=== PATIENT | male | born 1955 | race Caucasian/White ===

== ENCOUNTER → 2016-06-10 | Outpatient (CLI) | payer OTHER ==
[~2016-06-10] MED LIST: ALBUAER2 INH; ASPCH81X PO; BUPRTAB51 PO; CHOL100010 PO; CHOL200010 PO; CLON2TAB3 PO; DUTA0.5C PO; EPP3/2 IM; FINA5TAB PO; LEVO-371 PO; LPT/40 PO; LSN5 PO; METH10TA4 PO; MONT1TAB3 PO; NXM/40 PO; OMEG10007 PO; TRAZ1TAB8 PO; TRIA1SPR4 NAE; VNTHFA/IN INH
[2016-06-10 14:04] LABS: BASO % 0.3 %; BASO ABS # 0.02 K/uL (0-0.2); COMPLETE YES; EOS % 3.2 %; HEMATOCRIT 43.1 % (42-52); IG% 0.3 %; LYMPH ABS # 1.76 K/uL (1.2-3.4); MEAN CELL VOLUME 89.4 fL (80-100); MEAN CORPUSCULAR HEMOGLOBIN 30.7 pg (25-34); MEAN CORPUSCULAR HGB CONC 34.3 g/dl (32-36); MEAN PLATELET VOLUME 10.4 fL (7.4-10.4); NEUT % 60.2 %; PLATELET COUNT 214 K/uL (130-400); RED BLOOD COUNT 4.82 M/uL (4.7-6.1); WHITE BLOOD COUNT 5.86 K/uL (4.8-10.8)
[2016-06-10 14:11] LABS: ESTIMATED AVERAGE GLUCOSE 154 mg/dl; HA1C FLAG Normal (Normal)
[2016-06-10 17:17] LABS: ALT/SGPT 52 U/L (12-78); BLOOD UREA NITROGEN 12 mg/dl (7-18); BUN/CREATININE RATIO 10.3 (10-20); CALCIUM 8.8 mg/dl (8.5-10.1); CARBON DIOXIDE 27 mmol/L (21-32); CHLORIDE 106 mmol/L (98-107); GLUCOSE 128 mg/dl (70-99); POTASSIUM 4.5 mmol/L (3.5-5.1); SODIUM 140 mmol/L (136-145)
[2016-06-10 17:26] LABS: ALB/GLOB RATIO 0.9 (0.9-2); ALKALINE PHOSPHATASE 64 U/L (45-117); AST/SGOT 29 U/L (15-37)
== END | disposition home or self-care (01) ==
LOC: C.LABBC 12:32
PROVIDERS: ATTEND Family Medicine
DX: R73.09 Other abnormal glucose (principal); E53.8 Deficiency of other specified B group vitamins; E55.9 Vitamin D deficiency, unspecified; M79.1 Myalgia; R07.9 Chest pain, unspecified

== ENCOUNTER → 2016-07-03 | Outpatient (CLI) | payer OTHER ==
[~2016-07-03] MED LIST changes: -LEVO-371 PO; +LEVO5TAB2 PO; -TRAZ1TAB8 PO; +TRAZ1TAB9 PO
--- NOTE | 2016-07-03 15:46 | DIAGNOSTIC IMAGING REPORT ---
CT SCAN OF THE PARANASAL SINUSES CLINICAL HISTORY: Hypertrophy of the nasal turbinates. COMPARISON STUDY: CT of the brain dated 04/19/2014. TECHNIQUE: High-resolution CT scan of the paranasal sinuses is performed. Images are reviewed in the axial, sagittal, and coronal planes. IV contrast was not administered for this examination. Examination is performed using the fusion protocol. CT DOSE: 922.27 mGy.cm FINDINGS: Postoperative change: Findings are consistent with bilateral maxillary antrectomy with antrostomy formation. Maxillary antra: There is trace dependent mucosal thickening within the maxillary antra. An incomplete bony septation is seen anteriorly on the right. Anterior ethmoid sinuses: Trace mucosal thickening is seen bilaterally. Posterior ethmoid sinuses: Trace mucosal thickening seen bilaterally. Sphenoid sinuses: Clear. Frontal sinuses: Trace mucosal thickening seen on the right. Clear on the left. Ostiomeatal complexes: Maxillary antrostomies are widely patent. Frontoethmoidal and sphenoethmoidal recesses: Patent bilaterally. Carotid arteries: The carotid arteries are protuberant but covered and without septal attachments. Ethmoid roofs: There is asymmetric elevation of the right ethmoid roof as compared to the left. Nasal turbinates: Normal in appearance. Nasal septum: There is rightward deviation of the bony nasal septum. Optic nerves: Covered. Orbits: The bony orbits are intact. Orbital contents are normal in appearance. Calvarium: The imaged calvarium is normal in appearance Mastoid air cells: Well pneumatized. Brain parenchyma: Partially visualized brain parenchyma is within normal limits. IMPRESSION: 1. Trace paranasal sinus disease as above. 2. Findings suggest previous maxillary antrectomy with antrostomy formation. The antrostomies are widely patent. 3. The nasal turbinates are normal as imaged. Electronically signed by: Fredy Prater M.D. 07/03/2016 3:45 PM Dictated Date/Time: 07/03/2016 3:41 PM
== END | disposition home or self-care (01) ==
LOC: C.CTS 14:57
DX: J34.3 Hypertrophy of nasal turbinates (principal)

== ENCOUNTER 2016-07-04 18:54 | Emergency (ER) | payer OTHER ==
[~2016-07-04] VITALS: Ht 185.4 cm; Wt 128.0 kg
[~2016-07-04 18:54] MED LIST changes: -BUPRTAB51 PO; -CHOL200010 PO; -FINA5TAB PO; -LEVO5TAB2 PO; -LSN5 PO; -TRIA1SPR4 NAE; -VNTHFA/IN INH
[2016-07-04 19:01] VITALS: TEMP 36.7; Ht 185.4 cm; Wt 128.0 kg
[2016-07-04] MEDS ORDERED: VNTHFA/IN INH (19:08)
[2016-07-04] MEDS ORDERED: CHOL200010 PO (19:08)
[2016-07-04] MEDS ORDERED: TRIA1SPR4 NAE (19:32)
[2016-07-04] MEDS ORDERED: FINA5TAB PO (19:32)
--- NOTE | 2016-07-04 19:55 | EMERGENCY ROOM VISIT NOTE ---
History First contact with patient: 19:04 Chief Complaint: EYE ASSESSMENT Stated Complaint: CLUSTER IN L EYE SOME PAIN History of Present Illness The patient is a 61 year old male who presents to the Emergency Room with complaints of floaters of the left eye. The patient states that this morning, he developed a "massive floater" in the lateral field of vision of his left eye. He states that the floater looks like one large duckwater with other small floaters around it. His vision is not decreased overall and he is able to see around the floater. He states that this first occurred approximately one hour after taking prednisone, and he is unsure if these are related. The patient is taking prednisone because he has a heart catheterization scheduled on Wednesday and has iodine allergy. The patient denies any history of floaters. He does see an eye doctor and wears glasses. He denies any eye pain, headaches or recent trauma. Review of Systems A complete 10-point Review of Systems was discussed with the patient, with pertinent positives and negatives listed in the History of Present Illness. All remaining Review of Systems questions can be considered negative unless otherwise specified. Past Medical/Surgical History Medical Problems: (1) Blood clots (2) Kidney stone (3) Urinary problem Surgical Problems: (1) Stented coronary artery Family History Diabetes mellitus FH: cancer FH: heart disease Hypertension Kidney disease or stones Social History Smoking Status: Never Smoker Alcohol Use: none Drug Use: none Marital Status: in relationship Housing Status: lives with family Occupation Status: employed Current/Historical Medications Scheduled Aspirin (Aspirin Chewable), 81 MG PO QAM Atorvastatin (Lipitor), 40 MG PO QAM Bupropion Hcl (Wellbutrin Xl), 300 MG PO QAM Cholecalciferol (Vitamin D), 2,000 UNIT PO DAILY Clonazepam (Klonopin), 2 MG PO HS Epinephrine (Epipen 2-Brennan), 0.3 ML IM UD Esomeprazole Magnesium (Nexium), 40 MG PO HS Finasteride (Proscar), 5 MG PO DAILY Fish Oil (Clay-3), 2 CAP PO BID Levocetirizine Dihydrochloride (Xyzal), 5 MG PO HS Montelukast Sodium (Singulair), 10 MG PO QAM Trazodone Hcl (Desyrel), 100 MG PO HS Triamcinolone Acetonide (Nasal (Nasacort Allergy 24Hr), 2 SPRAYS SANTO HS Scheduled PRN Albuterol Hfa (Ventolin Hfa), 2 PUFF INH Q4 PRN for SOB/Wheezing Allergies Coded Allergies: Ascorbate (Unverified Allergy, Unknown, GUNPOWDER-UNKNOWN REACTION, ) PER RECORDS BEE STING (Unverified Allergy, Unknown, UNKNOWN REACTION, 01/20/16) PER RECORDS Cat Dander (Unverified Allergy, Unknown, UNKNOWN REACTION, 01/20/16) PER RECORDS Dobutamine (Verified Allergy, Unknown, TROUBLE BREATING, 01/20/16) Patient had a bad reaction to this drug during a stress test. Eggplant (Unverified Allergy, Unknown, UNKNOWN REACTION, 01/20/16) PER RECORDS Iodinated Contrast Media (Verified Allergy, Unknown, HIVES, 01/20/16) reports being able to tolerate with benadryl pretreats Iron (Unverified Allergy, Unknown, GUNPOWDER-UNKNOWN REACTION, 01/20/16) PER RECORDS Physical Exam Vital Signs Date Time Temp Pulse Resp B/P Pulse Ox O2 Delivery O2 Flow Rate FiO2 07/04/16 20:05 72 18 132/95 95 07/04/16 19:01 36.7 74 20 163/95 95 Room Air Right Eye Acuity: 20/20 Left Eye Acuity: 20/20 Physical Exam VITALS: Vitals are noted on the nurse's note and reviewed by myself. Vital signs stable. GENERAL: This is a 61-year-old male, in no acute distress, nondiaphoretic, well- developed well-nourished. EYES: Visual acuity 20/20 bilaterally. Pupils equal round and reactive to light and accommodation. Conjunctivae without injection, sclerae without icterus. Extraocular movements intact. Slit-lamp exam shows no foreign bodies , hyphema or corneal abrasions. Intraocular pressures measured 11 mmHg in the left eye and 12 mmHg in the right eye. NEURO: Patient was alert and oriented to person place and time. Medical Decision & Procedures Medical Decision Differential diagnosis includes vitreous floaters, vitreous detachment, retinal detachment, CVA, TIA, among others. The patient was evaluated as above. A slit-lamp examination was unremarkable. Intraocular pressures were normal. I discussed the case with Dr. Johnson, the on- call drill press operator, who felt this was likely a vitreous detachment and recommended that the patient have a dilated exam this week or return for any worsening of his symptoms. Findings and treatment plan were discussed with the patient, who verbalized his understanding of my assessment and treatment plan and was discharged home in good condition. Impression Primary Impression: Vitreous floaters of left eye Departure Information Dispostion Home / Self-Care Condition GOOD Referrals Isaiah Gamble D.O.Int.Med. (PCP) Canelo Johnson MD Patient Instructions My [facility] Additional Instructions You should have a dilated eye exam by your own eye doctor or Dr. Johnson sometime this week. If you experience a rainstorm of floaters, his lightning storm flashes, or a loss of peripheral vision, you should call Dr. Johnson's answering service or return to the emergency Department for further evaluation.
[2016-07-04 20:05] VITALS: BP 132/95; PULSE 72; O2SAT 95
[2016-07-04] MEDS ORDERED: BUPRTAB51 PO (21:37)
[2016-07-04] MEDS ORDERED: LEVO5TAB2 PO (21:37)
[2016-07-06] MEDS ORDERED: LSN5 PO (15:50)
== END 2016-07-04 20:05 | disposition home or self-care (01) ==
LOC: C.EDB 18:57 → C.EDD 20:05
DX: H43.392 Other vitreous opacities, left eye (principal); Z86.718 Personal history of other venous thrombosis and embolism; Z87.442 Personal history of urinary calculi; Z95.5 Presence of coronary angioplasty implant and graft; Z83.3 Family history of diabetes mellitus; Z82.49 Family history of ischemic heart disease and other diseases of the circulatory system; Z84.1 Family history of disorders of kidney and ureter; Z79.82 Long term (current) use of aspirin

== ENCOUNTER → 2016-07-06 | Day surgery (SDC) | payer OTHER ==
[~2016-07-06] VITALS: Ht 185.4 cm; Wt 131.7 kg
[~2016-07-06] MED LIST changes: +ADENOSINE IV SOLN 3 MG/ML 20 ML VIAL ONE; -ALBUAER2 INH; +ALUMINUM/MAGNESIUM SUSP 30 ML UDC PO ONE; +ATROPINE SULFATE 0.1 MG/ML 5ML SYR IV PRN; +BUPRTAB51 PO; -CHOL100010 PO; +CHOL200010 PO; +CLOPIDOGREL BISULFATE 75 MG TAB ONE; +CLOPIDOGREL BISULFATE 75 MG TAB PO SCH; -DUTA0.5C PO; +DiphenhydrAMINE HCL 50 MG/ML VIAL ONE; +EPTIFIBATIDE 0.75 MG/ML 75MG VIAL IV ONE; +EPTIFIBATIDE 2 MG/ML 10 ML VIAL IV ONE; +FENTANYL CITRATE INJ 50 MCG/1 ML 2 ML VIAL ONE; +FINA5TAB PO; +HEPARIN SOD (PORCINE) 1000 UNIT/ML 10 ML VIAL ONE; +LEVO5TAB2 PO; +LSN5 PO; -METH10TA4 PO; +MIDAZOLAM HCL 1 MG/ML 2ML VIAL ONE; +NITROGLYCERIN 0.4 MG SL PER TAB CHARGE SL PRN; +NITROGLYCERIN/D5W 100MCG/ML 20ML SYR ONE; +NURSING VERBAL MED ORDER ONE; +NiCARDipine HCL INJ 2.5 MG/ML 10 ML AMP ONE; +ONDANSETRON INJ 2 MG/ML 2 ML VIAL IV PRN; +SODIUM CHLORIDE 0.9% 1000ML 1,000 ML IV SCH; +TRIA1SPR4 NAE; +VNTHFA/IN INH
[2016-07-06 06:54] VITALS: BP 110/94; PULSE 65; TEMP 37; O2SAT 98
[2016-07-06 07:23] VITALS: Ht 185.4 cm; Wt 131.7 kg
--- NOTE | 2016-07-06 07:51 | Procedure Note ---
Pre-Mod Sedation Assessment General Date of Moderate Sedation: Jul 06, 2016. Vital Signs: Vital Signs Past 12 Hours Date Time Temp Pulse Resp B/P Pulse Ox O2 Delivery O2 Flow Rate FiO2 07/06/16 06:54 37.0 65 16 110/94 98 Room Air Review Cardiovascular: regular rate, rhythm, no edema, no gallop, no JVD, no murmur, normal peripheral pulses Abdomen: non tender, soft Lungs: lungs clear, normal breath sounds, no respiratory distress Pre-Sedation Airway Assessment Oral Cavity: WNL Able to Visualize Vocal Cords: No Short Thick Neck: Yes Hx of Sleep Apnea: Yes Smoking Status: Former Smoker Mallampati Classification: Class III Procedure Planning Contraindications-for Mod Sed: None Yes Notes The planned sedation has been discussed with the patient and consent obtained. I have identified the patient, determined the appropriateness of sedation and have assessed the patient immediately prior to the procedure. All medicine(s) and interventions are by my order.
--- NOTE | 2016-07-06 07:53 | History & Physical Bridge Note ---
H&P Re-Evaluation Bridge Note: I have examined the patient, reviewed the History & Physical and in the interval since the performance of the History & Physical I have noted the following changes of clinical significance: No changes noted. Procedure,risks,benefits of cardiac cath/PCI discussed with patient. Consent signed. Further recommendations based on results of the procedure.
--- NOTE | 2016-07-06 10:39 | Procedure Note ---
Post-Mod Sedation Assessment General Date of Moderate Sedation Jul 06, 2016. Vital Signs: Vital Signs Past 12 Hours Date Time Temp Pulse Resp B/P Pulse Ox O2 Delivery O2 Flow Rate FiO2 07/06/16 10:31 76 16 118/78 96 Room Air 07/06/16 10:26 78 16 132/78 96 Room Air 07/06/16 06:54 37.0 65 16 110/94 98 Room Air Review - Discharge Criteria Vital Signs Stable: Yes Alert/Oriented/Conversant: Yes Returned to Baseline Mental St: Yes Nausea Absent/Minimal: Yes Pain/Discomfort/Absent/Minimal: Yes Normal/Baseline Respirations: Yes Active Bleeding?: No Pt Received D/C Instructions: Yes Prescriptions Given: None Specific Proced. D/C Criteria Distal Pulses Present (Cardiac: Yes Groin site assessed-Card Cath: N/A Voided Prior To Discharge: Yes Discharged Patients Adult Escort/Transportation: Yes
--- NOTE | 2016-07-06 12:23 | Discharge Instructions ---
Discharge Instructions Procedure Procedure Date: Jul 06, 2016. Reason for Visit: Cad Dr Miller To Do. Discharge Discharge Date: Jul 06, 2016. Discharge Diagnosis: In stent restenosis. Successful repeat drug eluting stent. Last Recorded Wt (Kilograms): 131.7 Anesthesia Post Anesthesia Instructions: If you have had General Anesthesia or IV Sedation: * Do not drive today. * Resume driving when surgeon permits. * Do not make important decisions or sign legal documents today. * Call surgeon for: 1. Temperature elevations greater than 101 degrees F. 2. Uncontrollable pain. 3. Excessive bleeding. 4. Persistent nausea and vomiting. 5. Medication intolerance (nausea, vomiting or rash). * For nausea and vomiting use only clear liquids such as: tea, soda, bouillon until nausea subsides, then gradually increase diet as tolerated. * If you have any concerns or questions, call your surgeon's office. If physician is unavailable and it is an emergency, call 911 or go to the nearest emergency room. Instructions Activity Recommendations: lifting limitation (No lifting over 10 pounds for 48 hrs.), driving or machine use limit (No driving until 07/07/16.), shower/bathe limit (No shower or bath till 07/07/16.) Recommended Home Diet: low sodium, low cholesterol, diabetes diet Allergies: Coded Allergies: Ascorbate (Unverified Allergy, Unknown, GUNPOWDER-UNKNOWN REACTION, ) PER RECORDS BEE STING (Unverified Allergy, Unknown, UNKNOWN REACTION, 01/20/16) PER RECORDS Cat Dander (Unverified Allergy, Unknown, UNKNOWN REACTION, 01/20/16) PER RECORDS Dobutamine (Verified Allergy, Unknown, TROUBLE BREATING, 01/20/16) Patient had a bad reaction to this drug during a stress test. Eggplant (Unverified Allergy, Unknown, UNKNOWN REACTION, 01/20/16) PER RECORDS Iodinated Contrast Media (Verified Allergy, Unknown, HIVES, 01/20/16) reports being able to tolerate with benadryl pretreats Iron (Unverified Allergy, Unknown, GUNPOWDER-UNKNOWN REACTION, 01/20/16) PER RECORDS Provider Instructions Take aspirin and Plavix every day. Call 911 for any sustained chest pain or dyspnea. Follow Up Follow-up with: Follow up with Robe Sloan and Dr. Miller as scheduled. Allie [place]ri[place] Recommendations: Call your doctor if: * Temperature above 101 degrees * Pain not relieved by pain medicine ordered * There is increased drainage or redness from any incision * You have any unanswered questions or concerns. Your Doctors Instructions noted above were prepared by provider Bay Miller. Patient Signature Section: Patient Instructions Signature Page Pk Fine Patient (or Guardian) Signature/Date: I have read and understand the instructions given to me by my caregivers. Caregiver/RN/Doctor Signature/Date: The above-named patient and/or guardian has received patient instructions on this date. + Original Patient Signature Page (only) stays with chart. Please make copy for patient.
--- NOTE | 2016-07-06 14:51 | ECHOCARDIOGRAM REPORT ---
*NOTICE TO RECEIVING LIBERTARIAN AGENCY This information is strictly Confidential and protected under [place] law. [place] law prohibits you from making any further disclosure of this information unless further disclosure is expressly permitted by the written consent of the person to whom it pertains or is authorized by law. A general authorization for the release of medical or other information is not sufficient for this purpose. Hospital accepts no responsibility if the information is made available to any other person, INCLUDING THE PATIENT. Interpretation Summary * Name: DUC DE ANDA Study Date: 07/06/2016 01:49 PM BP: 127/48 mmHg * Patient Location: C.CATH HR: 47 * : 1955 (M/d/yyyy) Gender: Male Height: 73 in * Age: 61 yrs Ethnicity: CA Weight: 290 lb * Ordering Physician: Bay Miller * Referring Physician: Bay Miller * Performed By: Ronit Alanis * * Reason For Study: CHEST PAIN, POST PCI * BSA: 2.5 m2 * -- Conclusions -- * Left ventricular systolic function is normal. * No regional wall motion abnormalities noted. * Ejection Fraction = 65-70%. * There is moderate concentric left ventricular hypertrophy. * Grade I diastolic dysfunction, (abnormal relaxation pattern). * No significant valvular pathology. Procedure Details * A complete two-dimensional transthoracic echocardiogram was performed (2D, M-mode, Doppler and color flow Doppler). * A contrast injection of Definity was performed to improve assessment of LV function. * Contrast was injected into an intravenous site in the left arm. * One vial of Definity ultrasound contrast was diluted in normal saline to a total volume of 10 ml. A total of '2' ml of solution was administered during imaging. * Lot # [id number] of Definity utilized for procedure. * Expiration date 07/21. * The attending nurse who injected the contrast agent was NELL BEVERLY RN. Left Ventricle * The left ventricle is normal in size. * There is moderate concentric left ventricular hypertrophy. * Ejection Fraction = 65-70%. * Left ventricular systolic function is normal. * No regional wall motion abnormalities noted. Right Ventricle * The right ventricle is not well visualized. * The right ventricular systolic function is normal as assessed by tricuspid annular plane systolic excursion (TAPSE) (normal >1.5 cm). Atria * The left atrium is mildly dilated. * The right atrium is mildly dilated. * Atrial septum poorly visualized. Mitral Valve * The mitral valve is grossly normal. * There is no mitral valve stenosis. * Significant mitral regurgitation is absent. Tricuspid Valve * The tricuspid valve is not well visualized. * Significant tricuspid regurgitation is absent. Aortic Valve * The aortic valve is tricuspid. The leaflet thickness if normal. There is no aortic stenosis, and no significant insufficiency. * The aortic valve opens well. * Aortic valve sclerosis mild, without significant aortic valvular stenosis. * There is no significant aortic regurgitation. Pulmonic Valve * The pulmonary valve is not well seen, but the Doppler examination is normal without significant regurgitation or stenosis. Great Vessels * The aortic root is normal size. * The pulmonary is not well visualized. Pericardium/Pleural * There is no pericardial effusion. Great Vessels * IVC not well seen. Left Ventricular Diastolic Function * Grade I diastolic dysfunction, (abnormal relaxation pattern). MMode 2D Measurements and Calculations IVSd 1.5 cm IVSs 2.2 cm LVIDd 5.1 cm LVIDs 3.2 cm LVPWd 1.4 cm LVPWs 1.8 cm IVS/LVPW 1.1 FS 36.2 % EDV(Teich) 121.6 ml ESV(Teich) 41.9 ml EF(Teich) 65.6 % EDV(cubed) 129.6 ml ESV(cubed) 33.7 ml EF(cubed) 74.0 % % IVS thick 46.1 % % LVPW thick 30.4 % LV mass(C)d 314.8 grams LV mass(C)dI 124.9 grams/m\S\2 LV mass(C)s 291.8 grams LV mass(C)sI 115.8 grams/m\S\2 SV(Teich) 79.7 ml SI(Teich) 31.6 ml/m\S\2 SV(cubed) 95.9 ml SI(cubed) 38.1 ml/m\S\2 ACS 1.6 cm asc Aorta Diam 3.5 cm LVOT diam 2.1 cm LVOT area 3.6 cm\S\2 LVAd ap4 41.8 cm\S\2 LVLd ap4 9.4 cm EDV(MOD-sp4) 148.9 ml EDV(sp4-el) 157.3 ml LVAs ap4 20.7 cm\S\2 LVLs ap4 7.6 cm ESV(MOD-sp4) 46.4 ml ESV(sp4-el) 48.1 ml EF(MOD-sp4) 68.8 % EF(sp4-el) 69.4 % LVAd ap2 39.8 cm\S\2 LVLd ap2 9.0 cm EDV(MOD-sp2) 142.4 ml EDV(sp2-el) 149.0 ml LVAs ap2 20.0 cm\S\2 LVLs ap2 7.4 cm ESV(MOD-sp2) 44.6 ml ESV(sp2-el) 45.8 ml EF(MOD-sp2) 68.7 % EF(sp2-el) 69.3 % LVLd %diff -4.13 % EDV(MOD-bp) 148.4 ml LVLs %diff -2.60 % ESV(MOD-bp) 46.4 ml EF(MOD-bp) 68.7 % SV(MOD-sp4) 102.5 ml SI(MOD-sp4) 40.7 ml/m\S\2 SV(MOD-sp2) 97.8 ml SI(MOD-sp2) 38.8 ml/m\S\2 SV(MOD-bp) 102.0 ml SI(MOD-bp) 40.5 ml/m\S\2 SV(sp4-el) 109.2 ml SI(sp4-el) 43.4 ml/m\S\2 SV(sp2-el) 103.2 ml SI(sp2-el) 41.0 ml/m\S\2 Doppler Measurements and Calculations MV E max elli 65.7 cm/sec MV A max elli 73.2 cm/sec MV E/A 0.90 MV dec time 0.23 sec Ao V2 max 120.7 cm/sec Ao max PG 5.8 mmHg Ao max PG (full) 0.47 mmHg MASHA(V,A) 3.4 cm\S\2 MASHA(V,D) 3.4 cm\S\2 LV V1 max PG 5.4 mmHg LV V1 max 115.7 cm/sec PA V2 max 74.4 cm/sec PA max PG 2.2 mmHg PI end-d elli 95.3 cm/sec
[2016-07-06 16:30] VITALS: BP 125/76; PULSE 65; O2SAT 96
--- NOTE | 2016-07-06 18:12 | Cardiac Catheterization ---
Procedure Note Procedure Date Jul 06, 2016. Pre-Procedure Diagnosis Cardiothoracic Symptom (Worsening WILLIAMSON, fatigue in patient with known CAD ( multiple LAD stents). No history of chest pain. Anginal equivalent symptom is dyspnea.) AUC Score 7 Post-Procedure Diagnosis Severe CAD, Successful PCI Procedure(s) Performed Coronary Angiography, Left Heart Cath, PTCA, Drug Eluting Stent Warehouse Distribution Manager Dr. Miller Aeronautical Drafter(s) JOSÉ LUIS [place] Estimated Blood Loss 60 ml Medication(s) Fentanyl, Heparin, Integrilin, Nicardipine (Intra arterial and intracoronary), Versed, Lidocaine 1% Summary of Findings Clinical indications: Unstable anginal symptoms in a patient with longstanding history of coronary artery disease. In [facility] he underwent deployment of a total of 4 LAD stents. 3 x 32 mm Taxus drug-eluting stent proximal LAD May 2005. Deployment of 3 x 12 mm, 3.5 x 28 mm, and 3.5 x 18 mm Promus drug-eluting stents in LAD January 2006. A Lexiscan in 2005 revealed possible small area of mild apical ischemia. The patient recently has developed progressively worsening dyspnea on exertion. This is associated with atypical chest discomfort. The patient states that the dyspnea is similar to that present prior to his LAD stents in 2005. Catheterization site: 6 Indian Slender glide sheath right radial artery. Diagnostic catheters: 5 Indian brachial 3.5 and JL4 diagnostic catheters. Interventional equipment: [place] guidewire, [employer] [place] trek 3 x 15 mm balloon dilatation catheter, Medtronic Resolute 3.5 x 30 mm drug-eluting stent. Multiple guide catheters were used. These included 6 Indian EBU 4.0, ALT 2.0 , EBU 4.5, EBU 4.0 with side holes, AL 3.0, JL 4.0, JL 4.5. \ Interventional protocol: A 6 Indian EBU 4.0 guide catheter was 1st used. Had been planned to perform FFR measurement of the LAD stenosis. However, the [employer] computer malfunctioned. FFR was not able to be performed. The [employer] FFR guidewire was removed and exchanged for the [place] guidewire. Multiple guide catheters were then used in attempts at adequately cannulating the left main coronary artery. Adequate cannulation was ultimately accomplished with the AL .0 guide. Through this guide the [place] and NC trek balloon were advanced. Three balloon inflations were performed to the proximal in stent restenosis of the LAD to maximum pressure of 18 atmospheres and maximum duration of 20 seconds. the stent was then deployed at a pressure of 16 atmospheres for duration of 45 seconds. Follow-up angiography was then performed. Guide position was lost. The left main could not be recannulated with the Amplatz guide catheter. Adequate re-cannulation was obtained with the 6 Indian JL 4.5 guide catheter. Follow-up angiography was then performed. Complications: None. Hemostasis: Terumo TR band. Findings: Fluoroscopy revealed mild coronary calcifications in the presence of the extensive LAD stents. Left dominant circulation. Large caliber left main coronary artery which gave rise to medium caliber left anterior descending and left circumflex coronary arteries. The left main also gave rise to an early bifurcating medium caliber ramus artery. The ramus gave rise to long branches. These had minor luminal irregularities was 0-10% stenoses. The left main itself had no obstructive disease. The very proximal LAD had 30-40% in stent restenosis. It then had an 80% stenosis. The mid LAD then had in stent restenosis of 30%. The mid LAD gave rise to bifurcating very small caliber 1st diagonal artery. The mid and distal LAD after the stented region was of small caliber. Following stent deployment the residual stenosis at the site of the new stent was 0-10%. The latter part of the stented region had a residual 30% stenosis. This was at the site of the prior stents. the distal LAD wrapped around the apex as a very small caliber vessel. The mid left circumflex had a 10-20% stenosis. The left circumflex gave rise to very small caliber 1st and 2nd marginal arteries. The distal circumflex gave rise to a very small caliber 3rd marginal artery. It then gave rise to a small caliber 1st posterolateral artery and then a small caliber 2nd posterolateral artery. Plan: The patient will be continued on dual antiplatelet therapy with aspirin and clopidogrel. Would recommend indefinite dual antiplatelet therapy unless a contraindication to its use arises. Continue statin, beta-veronica, and Alfonso inhibitor therapy. Hemodynamics Rest Ao: 138/87/109 mm Hg Final Ao: 137/76/102 mm Hg LV: 116/17 mm Hg Recommendations Medical therapy and/or Counseling, PCI without planned CABG Specimens None Radiation Exposure (mGy) 5701 Contrast (mls) 270 ml Visipaque Fluids (cc crystalloids) 260 Drains None Anesthesia IV versed,fentanyl. Lidocaine 1 % for local Procedural Complication(s) None Disposition [employer]/Recovery ACC Data Cardiac Status Clinical evaluation leading to the procedure CAD Presntation: Unstable angina Anginal Classification: CCS III Heart Failure: No Cardiogenic Shock w/in 24Hrs: No Cardiac Arrest w/in 24Hrs: No Imaging studies past 6 months: No Stress studies past 6 months: No Standard Exercise Stress Test: No Stress Echocardiogram: No Stress Testing w/SPECT MPI: No Cardiac CTA: No Coronary Anatomy Dominant: Left Left Main (% Stenosis): Normal LAD (% Stenosis): Proximal (30-40,80), Mid (30), Distal (10-20) Circumflex (% Stenosis): Mid (10-20) OM1 (% Stenosis): Normal OM2 (% Stenosis): Normal OM3 (% Stenosis): Normal L PL1 (% Stenosis): Normal L PL2 (% Stenosis): Normal RCA (% Stenosis): Proximal (10-20), Mid (10-20) Left Ventricular Angiography EF (%): NA Diagnostic Physician's Name: Bay Miller M.D. Status: Elective Closure Device Percutaneous Entry Location: Radial Closure Device: Radial Band Recommendations: Medical therapy and/or Counseling, PCI without planned CABG Lesion Segment Name: Proximal LAD Culprit Artery: Yes Stenosis Prior to Rx (%): 80 Chronic Total Occlusion: No IVUS: No FFR: No (It was planned to perform FFR. Computer malfunction.) Pre-Procedure SUSAN Flow: 3 Previously Treated Lesion: Yes Treated Lesion: Timeframe: greater than 2 years Treated with Stent: Yes In-Stent Restenosis: Yes In-Stent Thrombosis: No Stent Type: Non-JOSE DANIEL Lesion Complexity: High/C Lesion Length (mm): 25 Thrombus Present: No Bifurcation Lesion: No Guidewire Across Lesion: Yes Guidewire: Stenosis Post-Procedure (%): 0-10 Post-Procedure SUSAN Flow: 3 Device(s) Deployed: Yes Type of Device(s): 3.5 X 30 mm Resolute JOSE DANIEL Intraprocedure Events Significant Dissection: No Perforation: No
== END | disposition home or self-care (01) ==
LOC: C.CATH 06:52
PROVIDERS: ATTEND Internal Medicine Cardiovascular Disease
DX: I25.110 Atherosclerotic heart disease of native coronary artery with unstable angina pectoris (principal); E78.5 Hyperlipidemia, unspecified; E66.9 Obesity, unspecified; Z95.5 Presence of coronary angioplasty implant and graft; G47.33 Obstructive sleep apnea (adult) (pediatric); K21.9 Gastro-esophageal reflux disease without esophagitis; Z68.36 Body mass index [BMI] 36.0-36.9, adult; E53.8 Deficiency of other specified B group vitamins; J45.909 Unspecified asthma, uncomplicated; M54.12 Radiculopathy, cervical region; N40.1 Benign prostatic hyperplasia with lower urinary tract symptoms; N13.8 Other obstructive and reflux uropathy; E55.9 Vitamin D deficiency, unspecified; Z82.49 Family history of ischemic heart disease and other diseases of the circulatory system; Z83.3 Family history of diabetes mellitus; Z79.02 Long term (current) use of antithrombotics/antiplatelets; Z79.82 Long term (current) use of aspirin

== ENCOUNTER 2016-07-07 11:05 | Observation (INO) | payer OTHER ==
[~2016-07-07] VITALS: Ht 185.4 cm; Wt 122.8 kg
[~2016-07-07 11:05] MED LIST changes: -ADENOSINE IV SOLN 3 MG/ML 20 ML VIAL ONE; -ALUMINUM/MAGNESIUM SUSP 30 ML UDC PO ONE; -ATROPINE SULFATE 0.1 MG/ML 5ML SYR IV PRN; -CLOPIDOGREL BISULFATE 75 MG TAB ONE; -CLOPIDOGREL BISULFATE 75 MG TAB PO SCH; -DiphenhydrAMINE HCL 50 MG/ML VIAL ONE; -EPTIFIBATIDE 0.75 MG/ML 75MG VIAL IV ONE; -EPTIFIBATIDE 2 MG/ML 10 ML VIAL IV ONE; -FENTANYL CITRATE INJ 50 MCG/1 ML 2 ML VIAL ONE; -HEPARIN SOD (PORCINE) 1000 UNIT/ML 10 ML VIAL ONE; -MIDAZOLAM HCL 1 MG/ML 2ML VIAL ONE; -NITROGLYCERIN 0.4 MG SL PER TAB CHARGE SL PRN; -NITROGLYCERIN/D5W 100MCG/ML 20ML SYR ONE; -NURSING VERBAL MED ORDER ONE; -NiCARDipine HCL INJ 2.5 MG/ML 10 ML AMP ONE; -ONDANSETRON INJ 2 MG/ML 2 ML VIAL IV PRN; -SODIUM CHLORIDE 0.9% 1000ML 1,000 ML IV SCH
[2016-07-07] MEDS ORDERED: SODIUM CHLORIDE 0.9% 1000ML 1,000 ML IV STA (11:39)
[2016-07-07 11:52] LABS: BASO % 0.2 %; BASO ABS # 0.02 K/uL (0-0.2); COMPLETE YES; EOS % 1.3 %; HEMATOCRIT 40.9 % (42-52); IG% 0.4 %; LYMPH % 22.7 %; LYMPH ABS # 1.86 K/uL (1.2-3.4); MEAN CORPUSCULAR HEMOGLOBIN 30.9 pg (25-34); MEAN CORPUSCULAR HGB CONC 35.5 g/dl (32-36); MEAN PLATELET VOLUME 9.7 fL (7.4-10.4); MONO % 9.3 %; NEUT % 66.1 %; PLATELET COUNT 215 K/uL (130-400); WHITE BLOOD COUNT 8.19 K/uL (4.8-10.8)
[2016-07-07 11:59] LABS: BUN/CREATININE RATIO 12.7 (10-20); CALCIUM 8.8 mg/dl (8.5-10.1); CREATININE 1.2 mg/dl (0.60-1.40)
--- NOTE | 2016-07-07 12:02 | DIAGNOSTIC IMAGING REPORT ---
CHEST ONE VIEW PORTABLE CLINICAL HISTORY: Chest pain. COMPARISON STUDY: Chest radiograph September 05, 2015. FINDINGS: Lung volumes are normal. There is no pneumothorax or pleural effusion. Cardiac size is at the upper limits of normal. There is no evidence of pulmonary edema. There is no consolidation. Subtle pleural opacity within left lower hemithorax is unchanged. IMPRESSION: 1. No acute findings. 2. Mild nonspecific left lower hemithorax apparent pleural thickening which can be assessed on subsequent exams. Electronically signed by: Manny Hickey M.D. 07/07/2016 12:01 PM Dictated Date/Time: 07/07/2016 11:58 AM
[2016-07-07] MEDS ORDERED: NITROGLYCERIN 0.4 MG SL PER TAB CHARGE SL PRN ×2 (12:45→13:30)
[2016-07-07] MEDS ORDERED: ALUMINUM/MAGNESIUM/SIMETH (MAALOX MAX) 30 ML UDC PO PRN (13:30)
[2016-07-07] MEDS ORDERED: ONDANSETRON INJ 2 MG/ML 2 ML VIAL IV PRN (13:30)
[2016-07-07] MEDS ORDERED: GI COCKTAIL PO ONE ×2 (13:30→13:45)
[2016-07-07] MEDS ORDERED: ALBUTEROL HFA 8 GM INHALER INH PRN (13:30)
[2016-07-07] MEDS ORDERED: INFLUENZA VIRUS QUAD VACCINE 0.5 ML SYR IM. ONE (13:30)
[2016-07-07] MEDS ORDERED: MAGNESIUM HYDROXIDE SUSP 30 ML UDC PO PRN (13:30)
[2016-07-07] MEDS ORDERED: ACETAMINOPHEN 325 MG TAB PO PRN (13:30)
[2016-07-07] MEDS ORDERED: PNEUMOCOCCAL POLYSACCHARIDES 25 MCG/0.5 ML VIAL/SYR IM. ONE (13:30)
[2016-07-07] MEDS ORDERED: METOPROLOL TARTRATE 1 MG/ML VIAL IV PRN (13:45)
[2016-07-07] MEDS ORDERED: MoRPHine SULFATE 4 MG/ML 1 ML CARP\\VIAL IV PRN (13:45)
[2016-07-07] MEDS ORDERED: MoRPHine SULFATE 2 MG/ML CARP IV PRN (13:45)
[2016-07-07] MEDS ORDERED: ALUMINUM/MAGNESIUM SUSP 30 ML UDC ONE (13:55)
[2016-07-07] MEDS ORDERED: LIDOCAINE HCL 2% VISC SOLN 20 ML UDC ONE (13:55)
[2016-07-07] MEDS ORDERED: IV FLUIDS COMPLETED PRN (14:00)
[2016-07-07] MEDS ORDERED: ALUMINUM/MAGNESIUM SUSP 18 ML, LIDOCAINE HCL 2% VISCOUS SOLN 6 ML, BARCODE IDENTIFIER 1 EA PO ONE ×2 (14:00)
--- NOTE | 2016-07-07 14:19 | HISTORY & PHYSICAL EXAMINATION ---
DATE OF ADMISSION: 07/07/2016 OBSERVATION PRESENTING COMPLAINT: Burning in his chest. ADMITTING DIAGNOSIS: Elevated troponin. HISTORY OF PRESENT ILLNESS: Mr. Fine is a 61-year-old male who has atypical anginal symptoms. He was taken to the cardiac laborer wharf on the 06 of July, when he had in-stent stenosis of his LAD which is a re-stented. The patient post-procedure did have some epigastric burning, especially after drinking orange juice. He attributes this to his typical GERD. The patient had an EKG performed post-procedure which showed no ST changes. He was given Maalox which resolved his symptoms. The patient awoke this morning with worsening symptoms, he took an extra dose of his Nexium and he still had symptoms, he called Dr. Miller's office, reported to the ER where he was found to have no EKG changes, but a troponin of 1.5 and was recommended for observation for elevated troponin. Otherwise, he continues to have dyspepsia as he is pending a GI cocktail administration currently. PAST MEDICAL HISTORY: For his coronary disease having stents in his LAD performed in [place], he has had a history of kidney stones, he had a quadriceps tendon rupture, he gets seasonal allergies, and attention deficit disorder. MEDICATIONS: Include aspirin 81 a day, Plavix 75 a day, atorvastatin 40 a day, lisinopril 5 a day. For his allergies he takes Singulair 10 a day, Nasonex at bedtime, Xyzal 5 at bedtime. For anxiety and depression, he takes Wellbutrin-XL 450 a day, Klonopin 2 at bedtime, Desyrel 100 at bedtime. For urinary issues, he takes his Avodart 0.5. SOCIAL HISTORY: The patient has no smoking, no alcohol history. FAMILY HISTORY: Positive for hypertension, reflux. REVIEW OF SYSTEMS: Ten systems were reviewed and are negative unless listed above. Of note, he has no stool changes, dark stool and these symptoms feel more dyspeptic to him than cardiac. PHYSICAL EXAMINATION: GENERAL: He is a pleasant gentleman. VITAL SIGNS: Temperature 36.6, pulse 80, respirations 16, BP 134/71, O2 sat 97% on room air. HEENT: PERRL, EOMI. His oropharynx is mildly erythematous consistent with possibly irritation from allergies. NECK: Without lymphadenopathy. Trachea is midline. HEART: Regular without murmurs. LUNGS: Clear without wheezes, crackles. ABDOMEN: Normoactive bowel sounds, soft, nontender, nondistended. EXTREMITIES: His right wrist was accessed for the catheter, the site looks clean and dry. He has good distal pulses. Warm hand and good capillary refill. Otherwise, the extremities without cyanosis, clubbing or edema. NEUROLOGICALLY: He is awake, alert and appropriate. Cranial nerves II-XII are intact. Equal symmetrical strength and sensation with the exception of decreased twist maker strength in his right hand due to the minor discomfort of his wrist access site. PERTINENT LABORATORY DATA: White count of 9, H\T\H 14 and 40 and platelet count of 215. BUN and creatinine are 15 and 1.2. As mentioned, the troponin is slightly elevated at 1.5. Glucose is 148. IMAGING DATA: He has a chest x-ray performed which is nonspecific left lower hemithorax pleural thickening which requests for repeat cxr and his EKG shows sinus rhythm with no acute ST or T-wave changes. ASSESSMENT: A 61-year-old male 1 day post-left anterior descending artery stenting with elevated troponin. PLAN: Will trend his troponin in telemetry. Dr. Miller did see him in the ER and has no further recommendations other than to continue aspirin, Plavix and lisinopril along with his atorvastatin. For the dyspepsia. He will be given a GI cocktail and if this helps, we may consider adding Carafate to his typical home Nexium. Regarding his depression and anxiety, will maintain his Wellbutrin and his Desyrel and his Klonopin and we will hold his Ritalin at this time. For his allergies, we will maintain Singulair and Nasacort. For urinary issues, Avodart is nonformulary, will hold this at this present time, but if he should needed, we can use Flomax. DVT prevention is based upon heparin in case he would need to return to the laborer wharf. JOHANA
--- NOTE | 2016-07-07 14:44 | CARDIOLOGY CONSULTATION ---
DATE OF CONSULTATION: 07/07/2016 DATE OF CONSULTATION: 07/07/2016. PRIMARY PHYSICIAN: Isaiah Gamble D.O. CONSULTATION: Bay Miller M.D. HISTORY OF PRESENT ILLNESS: The patient is a 61-year-old white male. He is well known to me from the outpatient setting. He also underwent an LAD stent procedure yesterday for in-stent restenosis. The patient has an extensive history of coronary interventions to his LAD. He previously lived in [facility]. He received his cardiac and medical care at the [facility] in [place], [place]. All of his prior interventional cardiac procedures until yesterday were performed at [facility] in [place]. In May 2005, he was noted to have a 70% proximal to mid LAD stenosis. Intravascular ultrasound was performed and the lesion was felt to be significant. A 3 x 32 mm Taxus drug-eluting stent was deployed. Residual stenosis reported to be 0%. Repeat cardiac catheterization in January 2008 revealed 80% and 40-50% proximal LAD stenoses. Subsequent deployment of 3 x 12 mm, 3.5 x 28 mm, and 3.5 x 18 mm Promus stents in the LAD. Post-dilated with a 3.5 mm noncompliant balloon. Cardiac catheterization in May 2008 performed at [facility] revealed patent stent sites. Coronary artery CT angiography performed on 02/22/2009 revealed patent LAD stents. It was reported that there was a moderate to severe proximal RCA stenosis. Mild proximal LAD and mid left circumflex stenosis were reported. Cardiac catheterization was then performed on 03/15/2009. This revealed a 30-50% proximal LAD stenosis, 40% mid LAD stenosis, and 30-40% proximal left circumflex marginal branch #1 and #2 stenoses. It was reported that there were severe stenoses in the proximal and distal segment of a nondominant RCA. Normal left ventricular ejection fraction. Repeat CT angiogram of coronary arteries September 2010 with multiple proximal and mid LAD stents. Less than 30% in-stent restenosis. Moderate proximal LAD stenosis of 40-50%. The nondominant RCA was reported to have only mild narrowing at that time. Dobutamine stress echo December 2014 negative for evidence of myocardial ischemia. The dobutamine infusion was discontinued because of marked hypertensive response. Lexiscan 06/27/2015 with very small mild apical reversible defect which was felt to possibly represent ischemia. However, it was only present in one view. There is a very small mid to distal anterior septal fixed defect which is felt to be secondary to attenuation artifact. Normal LV wall motion and systolic function reported. Aortoiliac duplex scan 01/02/2015 with poor visualization of the iliac arteries. No evidence of an abdominal aortic aneurysm. The patient was seen in [facility] on 06/30/2016 with complaint of 2-3 week history of worsening dyspnea on exertion. This was walking up a grade or walking up one flight stairs. He has also had 1 episode of a "twisting painful sensation." The dyspnea on exertion was associated with fatigue. Relief with rest within 2-3 minutes. No prolonged episodes of dyspnea or chest discomfort. No associated symptoms of nausea, vomiting, diaphoresis, or dyspnea. In the past, the patient has never had any typical anginal symptoms. Because of his history of multiple LAD stents and coronary artery disease, it was felt best to perform a cardiac catheterization. This was performed on 07/06/2016. It was performed via the right radial artery. The proximal LAD had 30-40% then followed by 80% in-stent restenosis. The mid LAD in the latter part of this stent had a 30% stenosis. Distal LAD with 10-20% stenosis. No disease noted in the left circumflex marginals. Mid left circumflex with 10-20% stenosis. Proximal RCA with 10-20% stenosis. Mid RCA with 10-20% stenosis. The RCA was a nondominant vessel. He subsequently underwent deployment of a 3.5 x 30 mm Resolute drug-eluting stent in the proximal to mid LAD. This was deployed mostly inside of the previous stents. The very proximal portion of the stent was just outside of the previously stented region. SUSAN 3 flow was present in the LAD post-procedure. No evidence of dissection, thrombus, perforation, or distal embolic event. There remained a residual 30% mid LAD stenosis. This area was not stented yesterday. That stenosis was inside of the previously deployed stents. In the recovery area the patient had a complaint of a mild epigastric and retrosternal tightness. Electrocardiogram was performed with the complaint of discomfort. It revealed no acute changes. An echocardiogram was performed and revealed normal left ventricular wall motion and systolic function. He was given Maalox. His symptoms promptly resolved. He was subsequently discharged home in the late afternoon on 07/06/2016. He had no complaints at that time. Of note is that the patient had no complaints of any epigastric or chest discomfort during prolonged balloon inflations during his procedure yesterday. He denies any nausea or vomiting. No symptoms of GI bleeding. No fevers or chills. No pulmonary or urinary complaints. No pain at his right radial catheterization site today. He did have mild discomfort there last night. No neurologic symptoms. No peripheral vascular complaints. MEDICATIONS: Aspirin 81 mg daily, Proscar 5 mg daily, trazodone 100 mg at bedtime, Wellbutrin 150 mg tablet along with a 300 mg tablet daily, Nexium 20 mg daily, Xyzal 1 tablet daily, Singulair 10 mg daily, atorvastatin 40 mg daily, clopidogrel 75 mg daily, clonazepam 2 mg daily, [place] 3 capsules 2 capsules b.i.d., metformin 500 mg b.i.d., Nasonex 2 sprays daily, Ventolin inhaler as needed, lisinopril 5 mg daily. Lisinopril was prescribed yesterday. ALLERGIES AND ADVERSE DRUG REACTIONS: DOBUTAMINE, IODINATED CONTRAST. ENVIRONMENTAL ALLERGIES: ANIMAL DANDER, BEE STINGS, EGGPLANT, GUNPOWDER. PAST MEDICAL HISTORY: 1. Coronary artery disease as above. 2. Elevated hemoglobin A1c. Recent hemoglobin A1c 7%. 3. No prior history of hypertension. However, blood pressure was elevated yesterday. 4. History of depression and anxiety. 5. Bilateral hearing loss. 6. History of nasal polyps. 7. Obstructive sleep apnea. 8. BPH. 9. History of sciatica. 10. Gastroesophageal reflux disease. 11. History of DVT of lower leg. FAMILY HISTORY: History of abdominal aortic aneurysm in his father. A brother underwent coronary stent procedure when he was in his 40s. Family history of premature coronary artery disease. PAST SURGICAL HISTORY: 1. As above. 2. Inguinal hernia repair. 3. History of prostate surgery. SOCIAL HISTORY: The patient is currently single. He was previously . . He currently has a steady girlfriend. No children. He does not smoke cigarettes. REVIEW OF SYSTEMS: As above. PHYSICAL EXAMINATION: GENERAL: The patient is sitting in a stretcher bed in the Emergency Department. VITAL SIGNS: Oral temperature 36.6. Initial blood pressure was 143/97. Repeat blood pressure 134/71. Pulse 71. Pulse oximetry on room air 97%. NECK: No jugular venous distension. Carotids 2/2 bilaterally. Normal upstroke. No bruits. HEAD: Normal. EYES: Pupils equal and round. Anicteric. Conjunctivae normal. No xanthelasma. LUNGS: Clear. HEART: Regular rate and rhythm. S1, S2 normal. No S3 or S4. No murmur or rub. ABDOMEN: Soft. Mild epigastric tenderness. Positive bowel sounds. No bruits. CHEST WALL: No tenderness on palpation. EXTREMITIES: No pretibial edema. No cyanosis or clubbing. Right radial catheterization site without tenderness or bleeding. No evidence of arterial insufficiency in the right hand. No cyanosis or clubbing. NEUROLOGIC: Alert and oriented x3. Motor grossly intact. PSYCHIATRIC: Affect is normal. DATA: Electrocardiogram performed in the Emergency Department reveals normal sinus rhythm. Normal ST segments. No significant change compared to yesterday's electrocardiogram. Chest x-ray performed today and reviewed by me shows no evidence of congestive heart failure. No evidence of infiltrate. Chest x-ray reviewed by me. LABORATORY DATA: Today with WBC 8.19, hemoglobin 14.5, hematocrit 40.9, platelet count 215. Metabolic profile -- sodium 139, potassium 4.0, chloride 105, carbon dioxide 27, BUN 15, creatinine 1.20, random glucose 148. Troponin I 1.510. AST 33. ALT 61. Calcium 8.8. Lipase 178. ASSESSMENT: 1. Episodes of epigastric and chest discomfort today. The episodes are only lasting for a few minutes at a time. No associated symptoms. The intensity is not increased with exertion. Of note, is that the patient has never had this type of symptom during his interventional procedures. He did not have any epigastric or chest pain complaints yesterday during balloon inflations. Certainly cannot exclude that these symptoms are from myocardial ischemia. However, he has a significant history of gastroesophageal reflux disease. He himself feels that these are his typical GE reflux symptoms. He had similar symptoms yesterday which were relieved with oral antacids. 2. Status post repeat LAD stenting yesterday for in-stent restenosis. No evidence of any coronary complications at the completion of procedure. No significant disease in his other coronary arteries. 3. Electrocardiogram yesterday during complaints of chest discomfort revealed no acute changes. Echocardiogram performed yesterday revealed normal LV wall motion and systolic function. 4. Mild hypertension. 5. Dyslipidemia. 6. Diabetes mellitus. Hemoglobin A1c is elevated. 7. No evidence of vascular complications at right radial catheterization site. 8. Elevated troponin I. This could certainly be secondary to the interventional procedure performed yesterday. I do not suspect acute stent thrombosis as if this was occurring would expect dramatic EKG changes and severe symptoms. RECOMMENDATIONS: 1. In light of his coronary artery disease and recent stent and the elevated troponin, it would be best for the patient to be admitted for observation overnight. Serial troponin and cardiac enzymes. Repeat electrocardiogram in a.m. 2. Continue his usual cardiac medications and dual antiplatelet therapy. 3. Because of bradycardia with rates yesterday he seemed to be in the 40s at rest, beta veronica therapy is contraindicated. 4. If his troponin I's continue to increase or if he develops diagnostic ischemic changes would then strongly consider repeat cardiac catheterization. 5. Serial electrocardiograms and cardiac enzymes. [facility]
[2016-07-07 14:58] LABS: PROTHROMBIN TIME (PATIENT) 10.6 SECONDS (9.0-12.0)
[2016-07-07 15:15] VITALS: BP 146/85; PULSE 64; TEMP 36.5; O2SAT 95; Ht 185.4 cm; Wt 122.8 kg
[2016-07-07 18:45] VITALS: BP 150/92; PULSE 65; TEMP 36.6; O2SAT 93
[2016-07-07] MEDS: HEPARIN SOD 5000 UNIT/0.5 ML CARP SQ SCH (21:00)
[2016-07-07] MEDS ORDERED: TRIAMCINOLONE ACET NASAL SPRAY 10.8ML BTL NAE SCH (21:00)
[2016-07-07] MEDS ORDERED: TRAZODONE HCL 100 MG TAB PO SCH (21:00)
[2016-07-07] MEDS ORDERED: MONTELUKAST SOD 10 MG TAB PO SCH (21:00)
[2016-07-07] MEDS ORDERED: CLONAZEPAM 1 MG TAB PO SCH (21:00)
[2016-07-07] MEDS ORDERED: PANTOprazole SOD 40 MG TAB PO SCH (21:00)
--- NOTE | 2016-07-07 21:15 | EMERGENCY ROOM VISIT NOTE ---
ED Visit Note First contact with patient: 11:25 Chief Complaint: Chest pain. History of Present Illness: Mr. Fine is a 61 year-old white male who ambulates into the ED accompanied by female friend complaining of chest pressure. Historically patient reports history of coronary artery disease. Yesterday he was in this emergency department and had a cardiac angioplasty, heart catheterization and stent placement. Patient reports upon awaking this morning approximately 4 hours before he arrived from sleep. He noted that he was having midsternal chest pressure. Currently he rates his discomfort 3/10. The pain is nonradiating. He has not identified any aggravating or alleviating factors related to the pain. Associated with his discomfort he reports he feels mildly short of breath. Subjectively he reports this is not his normal cardiac symptoms and that he typically does not have chest discomfort but this discomfort does resemble his sometimes GERD symptoms. He has not taken any medications for his symptoms prior to arrival at the hospital. Patient denies fevers, chills, sweats, skin eruptions, skin color changes, upper respiratory tract symptoms, wheezing, cough, orthopnea, dependent edema, previous clots, claudication, cramping, recent surgery/inactivity/extended travel, abdominal pain, nausea, vomiting, diarrhea, constipation, rectal bleeding, black/tarry stools, urinary symptoms, back/flank pain. Review of Systems: As noted above in history of present illness. All body systems were reviewed and found to be negative as noted above. Past Medical History: (1) Blood clots (2) Kidney stone (3) Urinary problem Surgical Problems: (1) Stented coronary artery Current Medications: Medications Dose Route/Sig Max Daily Dose Days Date Category Lisinopril 5 Mg Tab 5 Mg PO DAILY 90 07/06/16 Rx Nasacort Allergy 24Hr (Triamcinolone Acetonide (Nasal) 55 Mcg/Act Spr 2 Sprays SANTO HS 07/04/16 Reported Proscar (Finasteride) 5 Mg Tab 5 Mg PO DAILY 07/04/16 Reported Vitamin D (Cholecalciferol) 2,000 Unit Cap 2,000 Unit PO DAILY 07/04/16 Reported Ventolin Hfa (Albuterol) 200 Puffs/42586 Mcg Aers 2 Puff INH Q4 PRN 07/04/16 Reported [place]-3 (Fish Oil) 1 Ea Cap 2 Cap PO BID 12/19/15 Reported Epipen 2-Brennan (Epinephrine) 0.3 Mg Inj 0.3 Ml IM UD 12/19/15 Reported Lipitor (Atorvastatin) 40 Mg Tab 40 Mg PO QAM 12/19/15 Reported Wellbutrin Xl (Bupropion Hcl) 300 Mg Tab 300 Mg PO QAM 10/24/13 Reported Xyzal (Levocetirizine Dihydrochloride) 5 Mg Tab 5 Mg PO HS 10/24/13 Reported Desyrel (Trazodone Hcl) 100 Mg Tab 100 Mg PO HS 05/27/13 Reported Nexium (Esomeprazole Magnesium) 40 Mg Cap 40 Mg PO HS 05/27/13 Reported Singulair (Montelukast Sodium) 10 Mg Tab 10 Mg PO QAM 05/27/13 Reported Klonopin (Clonazepam) 2 Mg Tab 2 Mg PO HS 05/27/13 Reported Aspirin Chewable (Aspirin) 81 Mg Chew 81 Mg PO QAM 05/27/13 Reported Allergies to Medications: Dobutamine, iron, IV contrast. Social History: Patient is currently employed; he feels safe in his home environment; he denies tobacco use. Physical Examination: Vital Signs: Date Time Temp Pulse Resp B/P Pulse Ox O2 Delivery O2 Flow Rate FiO2 07/07/16 12:19 71 16 134/71 97 07/07/16 12:04 80 07/07/16 11:30 98 Room Air 07/07/16 11:08 36.6 75 18 143/97 95 Room Air 07/07/16 11:08 95 GENERAL: 61-year-old male in mild distress due to pain, nontoxic-appearing, afebrile and hemodynamically stable. NEUROLOGICAL: Awake, alert and oriented to person, place and time. Answering questions appropriately and following commands. Normal gait. Good hand eye coordination. SKIN: Warm, dry and pink. No soft tissue eruptions or trauma noted. HEENT: Atraumatic and normocephalic. PERRLA. Sclera white and conjunctiva pink. Oral cavity moist and pink. Pharynx is nonerythematous or edematous. Speech normal. No lymphadenopathy. Trachea midline. No jugular venous distention. No carotid bruits. BACK: No tenderness over the bony spine. No CVA tenderness. THORAX: Lungs sounds are clear to auscultation and equal bilaterally with symmetrical chest wall. No wheezing, rales or rhonchi. No crepitus, tenderness , subcutaneous air or deformities noted. HEART: Regular rate and rhythm. No gallops, rubs or murmurs are appreciated. No lifts, heaves or thrills. PMI is not displaced. ABDOMEN: Flat, soft and nontender. Positive bowel sounds in all quadrants. No guarding, rigidity or organomegaly. EXTREMITIES: Moves all extremities well on command and with purpose. All distal neurovascular statuses are intact and equal bilaterally. No dependent edema or calf tenderness/cords. ED Course: Patient is assessed as noted above. Laboratory Testing: Test 07/07/16 11:21 Range/Units White Blood Count 8.19 4.8-10.8 K/uL Red Blood Count 4.70 4.7-6.1 M/uL Hemoglobin 14.5 14.0-18.0 g/dL Hematocrit 40.9 42-52 % Mean Corpuscular Volume 87.0 80-100 fL Mean Corpuscular Hemoglobin 30.9 25-34 pg Mean Corpuscular Hemoglobin Concent 35.5 32-36 g/dl Platelet Count 215 130-400 K/uL Mean Platelet Volume 9.7 7.4-10.4 fL Neutrophils (%) (Auto) 66.1 % Lymphocytes (%) (Auto) 22.7 % Monocytes (%) (Auto) 9.3 % Eosinophils (%) (Auto) 1.3 % Basophils (%) (Auto) 0.2 % Neutrophils # (Auto) 5.41 1.4-6.5 K/uL Lymphocytes # (Auto) 1.86 1.2-3.4 K/uL Monocytes # (Auto) 0.76 0.11-0.59 K/uL Eosinophils # (Auto) 0.11 0-0.5 K/uL Basophils # (Auto) 0.02 0-0.2 K/uL RDW Standard Deviation 42.6 36.4-46.3 fL RDW Coefficient of Variation 13.5 11.5-14.5 % Immature Granulocyte % (Auto) 0.4 % Immature Granulocyte # (Auto) 0.03 0.00-0.02 K/uL Sodium Level 139 136-145 mmol/L Potassium Level 4.0 3.5-5.1 mmol/L Chloride Level 105 98-107 mmol/L Carbon Dioxide Level 27 21-32 mmol/L Anion Gap 7.0 3-11 mmol/L Blood Urea Nitrogen 15 7-18 mg/dl Creatinine 1.20 0.60-1.40 mg/dl Est Creatinine Clear Calc Drug Dose 91.8 ml/min Estimated GFR () 75.7 Estimated GFR (Non- 65.3 BUN/Creatinine Ratio 12.7 10-20 Random Glucose 148 70-99 mg/dl Calcium Level 8.8 8.5-10.1 mg/dl Total Bilirubin 0.5 0.2-1 mg/dl Direct Bilirubin 0.1 0-0.2 mg/dl Aspartate Amino Transf (AST/SGOT) 33 15-37 U/L Alanine Aminotransferase (ALT/SGPT) 61 12-78 U/L Alkaline Phosphatase 54 45-117 U/L Troponin I 1.510 0-0.045 ng/ml Total Protein 7.3 6.4-8.2 gm/dl Albumin 3.6 3.4-5.0 gm/dl Lipase 178 73-393 U/L Chest X-Ray: Was read by myself and shows no acute infiltrates, effusions or pneumothorax. Normal heart silhouette and bony anatomy. EKG: Was read by myself and reviewed with Dr. Jarrell; shows normal sinus rhythm with a ventricular rate of. Normal axis, intervals and complexes. No acute ST changes indicating ischemia, injury or infarction. This was compared to his EKG from yesterday in no acute changes were noted. Patient was hydrated with normal saline; patient was to receive a nitroglycerin trial but this was suspended by the hospitalist. Patient was reassessed multiple times during his stay in the emergency department. Patient's case was reviewed with Dr. Jarrell; we agreed on diagnostic approach, treatment, disposition and plan. Patient's case was consulted with Drs. Miller, cardiology; he recommended medical observation. Patient's case was consulted with Dr. Kevin, hospitalist; for medical observation. Patient was educated about toncarmelita's findings. Clinical Impression: Acute chest pain. Decision-Making: Initially my differential diagnosis I considered acute coronary syndrome, thoracic aneurysm, pneumothorax, pneumonia, complications from yesterday's procedure and other causes. Disposition and Plan: Patient be brought in the hospital for medical observation /admission; please see the hospitalist notes and orders for final disposition and plan.
[2016-07-07] MEDS ORDERED: NURSING VERBAL MED ORDER ONE (21:30)
[2016-07-07] MEDS: OMEGA-3 (PURIFIED FISH OIL) 1 GM CAP PO SCH (22:39)
[2016-07-07 22:57] VITALS: BP 132/91; PULSE 57; TEMP 36.6; O2SAT 95
[2016-07-08 03:19] VITALS: BP 136/76; PULSE 59; TEMP 36.6; O2SAT 93
[2016-07-08 07:59] VITALS: BP 123/82; PULSE 77; TEMP 36.7; O2SAT 96
[2016-07-08] MEDS: HEPARIN SOD 5000 UNIT/0.5 ML CARP SQ SCH (09:00)
[2016-07-08] MEDS ORDERED: MONTELUKAST SOD 10 MG TAB PO SCH (09:00)
[2016-07-08] MEDS ORDERED: BuPROPion XL 300 MG TABCR PO SCH ×2 (09:00→21:00)
[2016-07-08] MEDS ORDERED: LISINOPRIL 5 MG TAB PO SCH (09:00)
[2016-07-08] MEDS ORDERED: CLOPIDOGREL BISULFATE 75 MG TAB PO SCH (09:00)
[2016-07-08] MEDS ORDERED: ATORVASTATIN 40 MG TAB PO SCH (09:00)
[2016-07-08] MEDS ORDERED: FINASTERIDE 5 MG TAB PO SCH ×2 (09:00→21:00)
[2016-07-08] MEDS ORDERED: ASPIRIN 81 MG ECTAB PO SCH (09:00)
[2016-07-08] MEDS: OMEGA-3 (PURIFIED FISH OIL) 1 GM CAP PO SCH (09:36)
--- NOTE | 2016-07-08 10:32 | Discharge Instructions ---
Discharge Instructions Date of Service Jul 08, 2016. Admission Reason for Admission: Elevated Troponin Discharge Discharge Diagnosis / Problem: chest discomfort due to reflux Discharge Goals Goal(s): Diagnostic testing Activity Recommendations Activity Limitations: resume your previous activity . Instructions / Follow-Up Instructions / Follow-Up your discomfort was almost certainly due to reflux. for now, in addition to your nexium, take an over the counter pepcid 20mg twice a day for the next week - then stop it and see how you're feeling. Current Hospital Diet Patient's current hospital diet: AHA Diet (Heart Healthy) Discharge Diet Recommended Diet: Regular Diet (continue on the prescribed diet you've started) Pending Studies Studies pending at discharge: no Laboratory Results Hemoglobin A1c Test 06/10/16 12:36 Range/Units Estimated Average Glucose 154 mg/dl Hemoglobin A1c 7.0 H 4.5-5.6 % Medical Emergencies . Who to Call and When: Medical Emergencies: If at any time you feel your situation is an emergency, please call 911 immediately. . Non-Emergent Contact Non-Emergency issues call your: Primary Care Provider, Project Mgr . . "Provider Documentation" section prepared by Junior Faria. VTE Core Measure Inpt VTE Proph given/why not?: Unfractionated heparin SQ
[2016-07-08 11:04] VITALS: BP 123/82; PULSE 77; TEMP 36.7; O2SAT 96
[2016-07-08 11:10] VITALS: BP 167/86; PULSE 85; TEMP 37.5; O2SAT 96
[2016-07-08 11:17] VITALS: BP 117/80; PULSE 67; TEMP 37.1; O2SAT 94
--- NOTE | 2016-07-08 14:58 | Discharge Summary ---
Discharge Summary Date of Service Jul 08, 2016. Discharge Summary Admission Date: Jul 07, 2016 at 13:24 Discharge Date: Jul 08, 2016 Discharge Disposition: Home Principal Diagnosis: chest pain almost certainly GERD related Procedures: serial cardiac enzymes stable @ 1.5 Last 24 Hours Test 07/07/16 19:15 07/08/16 03:25 Troponin I 1.520 ng/ml 1.530 ng/ml Consultations: cardiology Medication Reconciliation Continued Medications: Albuterol Hfa (Ventolin Hfa) 200 Puffs/59313 Mcg Aers 2 PUFF INH Q4 PRN for SOB/Wheezing, #1 INHALER Aspirin (Aspirin Chewable) 81 Mg Chew 81 MG PO QAM Atorvastatin (Lipitor) 40 Mg Tab 40 MG PO QAM, TAB Bupropion Hcl (Wellbutrin Xl) 300 Mg Tab 300 MG PO QAM Cholecalciferol (Vitamin D) 2,000 Unit Cap 2000 UNIT PO DAILY Clonazepam (Klonopin) 2 Mg Tab 2 MG PO HS, TAB Epinephrine (Epipen 2-Brennan) 0.3 Mg Inj 0.3 ML IM UD Esomeprazole Magnesium (Nexium) 40 Mg Cap 40 MG PO HS, CAP Finasteride (Proscar) 5 Mg Tab 5 MG PO DAILY, TAB Fish Oil ([place]-3) 1 Ea Cap 2 CAP PO BID, CAP Levocetirizine Dihydrochloride (Xyzal) 5 Mg Tab 5 MG PO HS Lisinopril (Lisinopril) 5 Mg Tab 5 MG PO DAILY for 90 Days, #90 TAB 3 Refills Montelukast Sodium (Singulair) 10 Mg Tab 10 MG PO QAM, TAB Trazodone Hcl (Desyrel) 100 Mg Tab 100 MG PO HS, TAB Triamcinolone Acetonide (Nasal (Nasacort Allergy 24Hr) 55 Mcg/Act Spr 2 SPRAYS SANTO HS Discharge Exam Physical Exam: General Appearance: no apparent distress Eyes: EOMI ENT: hearing grossly normal Neck: trachea midline Respiratory/Chest: no respiratory distress, no accessory muscle use Extremities: normal inspection 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 felt like chest pain was consistent with his usual indigestion, but given recent cath wanted to be sure. did not feel like anything he felt before with heart sx or like he felt during cath. cardiac enzymes up but stable @ ~1.5 over three checks. symptoms improved w maalox+ viscous lidocaine. cardiology agreed pain most likely due to GERD stable for home same meds as at home, addition of pepcid 20mg bid for about a week then stop f/u PCP and cardiology discussed diet changes -already working with physician in this respect Total Time Spent: Greater than 30 minutes This includes examination of the patient, discharge planning, medication reconciliation, and communication with other providers. Discharge Instructions Please refer to the electronic Patient Visit Report (Discharge Instructions) for additional information.
--- NOTE | 2016-07-08 16:06 | CARDIOLOGY PROGRESS NOTE ---
DATE: 07/08/2016 DATE: 07/08/2016. SUBJECTIVE: The patient was seen by me this morning in the telemetry unit room. He states that yesterday afternoon after receiving GI cocktail his epigastric and lower chest burning sensation completely resolved. For approximately 6-7 hours he had no abdominal or chest discomfort of any sort. Since then, he has had return of epigastric burning sensation. It is milder than yesterday. He states that this is his typical symptom with a flareup of his GE reflux disease. He does take his Nexium on a daily basis. He states that approximately 2-4 times a year he has a flareup of his GI symptoms that require use of antacids. He states he walked in the [place] today. No anginal symptoms with exertion. No orthopnea or PND overnight. No palpitations, lightheadedness, or syncope. Minimal discomfort at his right radial catheterization site. No bleeding complaints. No fevers or chills. No pulmonary, urinary, neurologic symptoms. MEDICATIONS: Bupropion 300 mg q.a.m. and 200 mg q.p.m., finasteride 5 mg at bedtime, aspirin 81 mg daily, atorvastatin 40 mg daily, finasteride 5 mg daily, lisinopril 5 mg daily, clopidogrel 75 mg daily, Singulair 10 mg daily, clonazepam 2 mg at bedtime, fish oil 1 gram b.i.d., Singulair 10 mg at bedtime, trazodone 100 mg at bedtime, Nasacort 2 sprays nightly, pantoprazole 40 mg at bedtime, subcutaneous heparin 5000 units b.i.d., and several p.r.n. medications. MEDICATION ALLERGIES: DOBUTAMINE, IODINATED CONTRAST AGENTS. IRON IS ALSO LISTED. He does not know history of adverse reaction to iron. PHYSICAL EXAMINATION: VITAL SIGNS: This morning with oral temperature is 36.7, pulse 77, blood pressure 123/82, pulse oximetry 96% on room air. NECK: No jugular venous distention. LUNGS: Normal respiratory effort. Clear. No rales or wheezes. HEART: Regular rate and rhythm. S1, S2 normal. No S3 or S4. No murmur or rub. ABDOMEN: Soft. Nontender. No palpable masses or organomegaly. No bruits. EXTREMITIES: Right radial catheterization site without bleeding or hematoma. No swelling. Right radial pulse strongly palpable. No pretibial edema. No cyanosis or clubbing. NEUROLOGIC: Alert and oriented x3. Motor grossly intact. PSYCHIATRIC: Affect is normal. DATA: Electrocardiogram performed this morning showed sinus bradycardia, rate 56 beats per minute. Otherwise normal. Troponin I's have been 1.510, 1.520, and 1.530. ASSESSMENT: 1. Epigastric and lower retrosternal discomfort consistent with gastrointestinal reflux. The symptoms were completely relieved for approximately 7-8 hours yesterday after receiving GI cocktail. He received prompt relief after drinking the GI cocktail. He states that these symptoms are his typical GI symptoms with reflux. 2. Electrocardiogram without any diagnostic ischemic or injury changes. 3. Elevated troponin I. The troponin I's are relatively static since admission. Suspect that the elevations are secondary to his interventional procedure on 07/06/2016. He received multiple balloon inflations and then stent deployment in his LAD. This degree of troponin elevation is not unexpected after a coronary interventional procedure. 4. Hypertension. 5. No vascular complications at right radial catheterization site. 6. No exertionally precipitated cardiac symptoms walking in the [place] today. RECOMMENDATIONS: 1. Discharge patient home. 2. Continue current medications. 3. Beta veronica therapy contraindicated because of his intrinsic bradycardia. 4. Cardiology followup visit with me on July 20 as previously scheduled. 5. Aspirin and clopidogrel daily. 6. The patient is aware to contact me with any questions or problems. ADDENDUM: The patient had experienced similar discomfort while recovering from his procedure on 07/06/2016. His electrocardiogram at that time was normal. An echocardiogram was performed and showed normal LV wall motion and systolic function.
== END 2016-07-08 12:35 | disposition home or self-care (01) ==
LOC: ENRESERVTM → ENRESERVDT → C.EDB 11:07 → C.EDINP 13:24 → C.2E 15:02
PROVIDERS: ADMIT Internal Medicine; ATTEND Family Medicine
DX: R79.89 Other specified abnormal findings of blood chemistry (principal); R10.13 Epigastric pain; R07.89 Other chest pain; K21.9 Gastro-esophageal reflux disease without esophagitis; Z95.818 Presence of other cardiac implants and grafts; E78.5 Hyperlipidemia, unspecified; E11.9 Type 2 diabetes mellitus without complications; Z79.82 Long term (current) use of aspirin; Z88.8 Allergy status to other drugs, medicaments and biological substances; Z91.041 Radiographic dye allergy status; R00.1 Bradycardia, unspecified; I11.9 Hypertensive heart disease without heart failure; J92.9 Pleural plaque without asbestos

== ENCOUNTER → 2016-10-01 | Outpatient (CLI) | payer OTHER ==
[~2016-10-01] MED LIST changes: +LEVO-371 PO; -LEVO5TAB2 PO; +TRAZ1TAB8 PO; -TRAZ1TAB9 PO
[2016-10-01 14:50] LABS: ALT/SGPT 53 U/L (12-78); AST/SGOT 26 U/L (15-37); BLOOD UREA NITROGEN 14 mg/dl (7-18); BUN/CREATININE RATIO 13.1 (10-20); CALCIUM 9.3 mg/dl (8.5-10.1); CARBON DIOXIDE 27 mmol/L (21-32); CHLORIDE 104 mmol/L (98-107); GLUCOSE 111 mg/dl (70-99); POTASSIUM 4.5 mmol/L (3.5-5.1); SODIUM 137 mmol/L (136-145)
[2016-10-01 14:53] LABS: ALB/GLOB RATIO 0.9 (0.9-2); ALKALINE PHOSPHATASE 56 U/L (45-117)
[2016-10-02 06:14] LABS: ESTIMATED AVERAGE GLUCOSE 140 mg/dl; HA1C FLAG Normal (Normal)
== END | disposition home or self-care (01) ==
LOC: C.LAB1850 12:35
PROVIDERS: ATTEND Family Medicine
DX: R73.09 Other abnormal glucose (principal)